=== PATIENT | male | born 1970 | race Caucasian/White ===

== ENCOUNTER 2017-03-10 17:45 | Emergency (ER) | payer SELFPAY | END 2017-03-10 19:28 | disposition home or self-care (01) | LOC: D.ER 17:45 | DX: L02.416 Cutaneous abscess of left lower limb (principal); F17.200 Nicotine dependence, unspecified, uncomplicated; E11.9 Type 2 diabetes mellitus without complications ==

== ENCOUNTER 2018-08-08 19:33 | Emergency (ER) | payer SELFPAY ==
[~2018-08-08] VITALS: Ht 175.3 cm; Wt 65.0 kg
[2018-08-08 20:14] VITALS: Ht 175.3 cm; Wt 65.0 kg
[2018-08-08 20:48] LABS: BASOPHILS 0.5 % (0-2); EOSINOPHILS 1.8 % (0-7); HEMATOCRIT 45.6 % (42.0-54.0); HEMOGLOBIN 16.6 g/dL (13.5-17.5); IMMATURE GRANULOCYTES 0.1 % (0-5); MCH 32.2 pg (26.0-34.0); MCHC 36.4 g/dL (31.0-37.0); MCV 88.5 fL (80.0-100.0); MEAN PLATELET VOLUME 8.6 fL (7.4-10.4); MONOCYTES 10.9 % (2-11); NEUTROPHILS 47.7 % (40-80); PLATELET COUNT 196 10x3/uL (130-400); RBC 5.15 10x6/uL (4.20-6.10); RDW 13.7 % (11.5-14.5); WBC 7.4 10x3/uL (4.8-10.8)
[2018-08-08 20:58] LABS: APTT 27.6 SECONDS (22.8-39.4); INR 1.01 (0.85-1.17); PROTIME 12.8 SECONDS (11.6-15.0)
[2018-08-08 20:59] LABS: D-DIMER-QUANTITATIVE 0.3 ug/mLFEU (0.20-0.54)
[2018-08-08 21:05] LABS: ALBUMIN 4.2 g/dL (3.4-5.0); ALKALINE PHOSPHATASE 52 U/L (46-116); ALT (SGPT) 21 U/L (10-68); BILIRUBIN - TOTAL 0.39 mg/dL (0.2-1.3); CALC OSMOLALITY 275 mosm/kg (275-300); CALCIUM 8.7 mg/dL (8.5-10.1); CARBON DIOXIDE 26.9 mmol/L (21.0-32.0); CHLORIDE - SERUM 102 mmol/L (98-107); CREATININE - SERUM 0.7 mg/dL (0.6-1.3); POTASSIUM - SERUM 3.8 mmol/L (3.5-5.1); PROTEIN - SERUM 7.7 g/dL (6.4-8.2); SODIUM 140 mmol/L (136-145); UREA NITROGEN 8 mg/dL (7-18); eGFR NON AFRICAN AMERICAN > 90 mL/min (90-120)
[2018-08-08 21:10] LABS: GLUCOSE 75 mg/dL (74-106)
[2018-08-08 21:16] LABS: CKMB 1.7 U/L (0.0-3.6); CREATINE KINASE 204 UL (21-232); MAGNESIUM - SERUM 2.3 mg/dL (1.8-2.4)
[2018-08-08 21:19] LABS: TROPONIN-I < 0.017 ng/mL (0.000-0.060)
[2018-08-08 22:22] VITALS: BP 118/91
== END 2018-08-08 22:22 | disposition left against medical advice (07) ==
LOC: D.ER 19:33
PROVIDERS: Family Medicine
DX: R07.9 Chest pain, unspecified (principal)

== ENCOUNTER 2019-11-16 20:56 | Emergency (ER) | payer SELFPAY ==
[~2019-11-16] VITALS: Ht 175.3 cm; Wt 61.4 kg
[2019-11-16 21:01] VITALS: Ht 175.3 cm; Wt 61.4 kg
[2019-11-16 21:19] LABS: BASOPHILS 0.3 % (0-2); EOSINOPHILS 3.6 % (0-7); HEMATOCRIT 46.3 % (42.0-54.0); HEMOGLOBIN 16.4 g/dL (13.5-17.5); IMMATURE GRANULOCYTES 0.3 % (0-5); LYMPHOCYTES 40.4 % (15-50); MCH 33.2 pg (26.0-34.0); MCHC 35.4 g/dL (31.0-37.0); MCV 93.7 fL (80.0-100.0); MEAN PLATELET VOLUME 8.5 fL (7.4-10.4); MONOCYTES 8.6 % (2-11); NEUTROPHILS 46.8 % (40-80); PLATELET COUNT 215 10x3/uL (130-400); RBC 4.94 10x6/uL (4.20-6.10); RDW 12.6 % (11.5-14.5); WBC 7.3 10x3/uL (4.8-10.8)
[2019-11-16 21:28] LABS: APTT 27.6 SECONDS (22.8-39.4); INR 0.86 (0.85-1.17); PROTIME 11.7 SECONDS (11.6-15.0)
[2019-11-16 21:30] LABS: CALC OSMOLALITY 263 mosm/kg (275-300); CARBON DIOXIDE 26.1 mmol/L (21.0-32.0); CHLORIDE - SERUM 99 mmol/L (98-107); CREATININE - SERUM 0.7 mg/dL (0.6-1.3); GLUCOSE 86 mg/dL (74-106); POTASSIUM - SERUM 4.2 mmol/L (3.5-5.1); SODIUM 133 mmol/L (136-145); UREA NITROGEN 9 mg/dL (7-18); eGFR NON AFRICAN AMERICAN > 90 mL/min (90-120)
[2019-11-16 21:47] LABS: ALBUMIN 4.2 g/dL (3.4-5.0); ALKALINE PHOSPHATASE 47 U/L (30-120); ALT (SGPT) 42 U/L (10-68); BILIRUBIN - TOTAL 0.31 mg/dL (0.2-1.3); CKMB 1.4 U/L (0.0-3.6); CREATINE KINASE 142 UL (21-232); PRO BNP 77 pg/mL (0-125); PROTEIN - SERUM 7.3 g/dL (6.4-8.2)
[2019-11-16 21:51] LABS: TROPONIN-I < 0.017 ng/mL (0.000-0.060)
[2019-11-16] MEDS ORDERED: ALBUTEROL SULF8.5 GM INH (23:31)
[2019-11-16] MEDS ORDERED: STERAPRED DS 1010 MG PO (23:31)
[2019-11-16] MEDS ORDERED: COMBIVENT RESPIM4 GM INH (23:42)
[2019-11-17 00:28] VITALS: BP 131/86
== END 2019-11-16 23:56 | disposition home or self-care (01) ==
LOC: D.ER 20:56
PROVIDERS: Family Medicine
DX: J43.9 Emphysema, unspecified (principal); R06.02 Shortness of breath; E11.9 Type 2 diabetes mellitus without complications; I10 Essential (primary) hypertension; Z72.0 Tobacco use

== ENCOUNTER 2019-12-19 19:44 | Emergency (ER) | payer SELFPAY ==
[~2019-12-19] VITALS: Ht 175.3 cm; Wt 61.4 kg
[~2019-12-19 19:44] MED LIST: ALBUTEROL SULF8.5 GM INH; COMBIVENT RESPIM4 GM INH; STERAPRED DS 1010 MG PO
[2019-12-19 19:54] VITALS: Ht 175.3 cm; Wt 61.4 kg
[2019-12-19 20:32] LABS: BASOPHILS 0.6 % (0-2); HEMATOCRIT 43.6 % (42.0-54.0); IMMATURE GRANULOCYTES 0.3 % (0-5); LYMPHOCYTES 33.7 % (15-50); MCH 31.9 pg (26.0-34.0); MCHC 34.4 g/dL (31.0-37.0); MCV 92.8 fL (80.0-100.0); MEAN PLATELET VOLUME 8.3 fL (7.4-10.4); MONOCYTES 11.8 % (2-11); NEUTROPHILS 48.6 % (40-80); PLATELET COUNT 216 10x3/uL (130-400); RDW 12.7 % (11.5-14.5); WBC 6.8 10x3/uL (4.8-10.8)
[2019-12-19 21:19] LABS: ALKALINE PHOSPHATASE 57 U/L (30-120); ALT (SGPT) 27 U/L (10-68); BILIRUBIN - TOTAL 0.41 mg/dL (0.2-1.3); CALC OSMOLALITY 268 mosm/kg (275-300); CARBON DIOXIDE 26.2 mmol/L (21.0-32.0); CHLORIDE - SERUM 100 mmol/L (98-107); CREATININE - SERUM 0.8 mg/dL (0.6-1.3); GLUCOSE 86 mg/dL (74-106); MAGNESIUM - SERUM 2.1 mg/dL (1.8-2.4); PRO BNP 91 pg/mL (0-125); PROTEIN - SERUM 7.2 g/dL (6.4-8.2); SODIUM 136 mmol/L (136-145); UREA NITROGEN 8 mg/dL (7-18); eGFR NON AFRICAN AMERICAN > 90 mL/min (90-120)
[2019-12-19 21:20] LABS: TROPONIN-I < 0.017 ng/mL (0.000-0.060)
[2019-12-19] MEDS ORDERED: COMBIVENT RESPIM4 GM INH (21:42)
[2019-12-19] MEDS ORDERED: STERAPRED DS 1210 MG PO (21:42)
[2019-12-19] MEDS ORDERED: DOXYCYCLINE HY100 M2 PO (21:42)
[2019-12-19] MEDS ORDERED: PROAIR HFA8.5 G1 INH (21:42)
[2019-12-19] MEDS ORDERED: ATROVENT HFA12.9 GM INH (22:02)
[2019-12-19 22:34] VITALS: BP 143/87
== END 2019-12-19 22:34 | disposition home or self-care (01) ==
LOC: D.ER 19:44
PROVIDERS: Family Medicine
DX: J44.9 Chronic obstructive pulmonary disease, unspecified (principal); E87.6 Hypokalemia; E11.9 Type 2 diabetes mellitus without complications; I10 Essential (primary) hypertension; R06.02 Shortness of breath